=== PATIENT | female | born 1990 | race Caucasian/White ===

== ENCOUNTER 2018-10-03 21:39 | Inpatient (IN) ==
[2018-10-03 21:55] VITALS: BMI 32.7
[2018-10-03 22:12] LABS: AMNISURE ROM TEST THERE IS A RUPTURE (NO RUPTURE)
[2018-10-03 22:53] LABS: BASOPHILS # (AUTO) 0.1 X10^3/uL (0.0-0.1); BASOPHILS % (AUTO) 0.5 % (0.2-1.0); EOSINOPHILS # (AUTO) 0.1 x10^3/uL (0.0-0.2); EOSINOPHILS % (AUTO) 0.5 % (0.9-2.9); HEMOGLOBIN 9.8 g/dL (12.0-16.0); LYMPHOCYTES # (AUTO) 1.9 X10^3/uL (1.3-2.9); LYMPHOCYTES % (AUTO) 17.5 % (21.0-51.0); MEAN CORPUSCULAR HEMOGLOBIN 28.4 pg (27.0-34.0); MEAN CORPUSCULAR HGB CONC 33.9 g/dL (33.0-35.0); MEAN CORPUSCULAR VOLUME 83.8 fL (80.0-100.0); MEAN PLATELET VOLUME 12.9 fL (7.4-11.0); MONOCYTES % (AUTO) 9.3 % (0.0-13.0); NEUTROPHILS # (AUTO) 7.8 x10^3/uL (2.2-4.8); NEUTROPHILS % (AUTO) 72.2 % (42.0-75.0); PLATELET COUNT 152 X10^3/uL (150.0-450.0); RED BLOOD COUNT 3.47 X10^6/uL (3.5-5.4); RED CELL DISTRIBUTION WIDTH 13.9 % (11.6-16.5); WHITE BLOOD COUNT 10.9 X10^3/uL (3.6-10.0)
[2018-10-03] MEDS ORDERED: D5 1/2 NS 1000 ML 1,000 ML IV ONE (22:53)
[2018-10-03 22:58] LABS: BLOOD UREA NITROGEN 11 mg/dL (7-18); CALCIUM 9.4 mg/dL (8.5-10.1); CARBON DIOXIDE 22.8 mmol/L (21-32); CHLORIDE 103 mmol/L (98-107); SODIUM 137 mmol/L (136-145); eGFR NON BLACK RACES > 60 (>60)
[2018-10-03] MEDS ORDERED: REGLAN INJ 10 MG VIAL IVP PRN (23:09)
[2018-10-03] MEDS ORDERED: NUBAIN INJ 200 MG VIAL MULTIDOSE IVP PRN (23:09)
[2018-10-03] MEDS ORDERED: PITOCIN IVP ONE (23:09)
[2018-10-03] MEDS ORDERED: D5LR 1L W PITOCIN 10 UNITS/L 10 UNITS/1,000 ML BAG IV PRN (23:09)
[2018-10-03] MEDS ORDERED: PITOCIN ONE (23:18)
[2018-10-03] MEDS ORDERED: D5 1/2 NS 1L W PITOCIN 20 UNITS/L 20 UNITS/1,000 ML BAG IV ONE (23:18)
[2018-10-03] MEDS ORDERED: D5 1/2 NS 1000 ML 1,000 ML IV SCH (23:45)
[2018-10-04] MEDS ORDERED: NUBAIN INJ 10 ONE ×2 (00:57→02:57)
[2018-10-04] MEDS ORDERED: FENTANYL INJ 100 mcg ONE (04:13)
[2018-10-04] MEDS ORDERED: ADRENALINE CHL INJ ONE (04:13)
[2018-10-04] MEDS ORDERED: NAROPIN EPIDURAL 0.2% + FENTANYL 90MCG 60 ML EPI ONE (04:13)
[2018-10-04] MEDS ORDERED: LR 1000 ML IV 1,000 ML IV ONE ×2 (04:13→06:28)
[2018-10-04] MEDS ORDERED: XYLOCAINE-MPF 1% ONE (04:14)
[2018-10-04] MEDS ORDERED: XYLOCAINE 1 % (PLAIN) ONE (04:14)
[2018-10-04] MEDS ORDERED: ANCEF VIAL 1 GRAM ONE (06:19)
[2018-10-04] MEDS ORDERED: XYLOCAINE 2% and EPINEPHRINE 1:100,000 ONE (06:27)
[2018-10-04] MEDS ORDERED: DILAUDID INJ ONE (06:27)
[2018-10-04] MEDS ORDERED: PHENERGAN INJ 25 MG IVP PRN (07:59)
[2018-10-04] MEDS ORDERED: REGLAN INJ 10 MG VIAL IVP PRN (07:59)
[2018-10-04] MEDS ORDERED: BENADRYL INJ 50 MG VIAL IVP PRN ×2 (07:59→08:21)
[2018-10-04] MEDS ORDERED: ZOFRAN INJ 4 MG VIAL IVP PRN ×2 (07:59→08:21)
[2018-10-04] MEDS ORDERED: PERCOCET TAB 5/325 MG PO PRN (08:21)
[2018-10-04] MEDS ORDERED: PROVENTIL NEB TX 0.083% 2.5MG/ 3ML NEB PRN (08:21)
[2018-10-04] MEDS ORDERED: NARCAN INJ IVP PRN (08:21)
[2018-10-04] MEDS ORDERED: ADACEL or BOOSTRIX TDaP VACCINE IM ONE (08:21)
[2018-10-04] MEDS ORDERED: D5 1/2 NS 1000 ML 1,000 ML with PITOCIN 20 UNITS IV SCH ×2 (08:21)
[2018-10-04] MEDS ORDERED: MYLICON TAB 80 MG CHEW PO PRN (08:21)
[2018-10-04] MEDS ORDERED: FLUVIRIN IM ONE (11:00)
[2018-10-04] MEDS: TORADOL 30 MG VIAL IVP PRN ×2 (11:31→19:59)
[2018-10-04] MEDS: PRENATAL PLUS PO SCH (11:36)
[2018-10-04] MEDS: PROTONIX TAB 40 MG PO SCH (11:37)
[2018-10-04] MEDS ORDERED: NS IRRIGATION 1000 ML ONE (13:46)
[2018-10-05] MEDS: TORADOL 30 MG VIAL IVP PRN (02:00)
[2018-10-05 06:17] LABS: HEMATOCRIT 25.7 % (36.0-47.0); HEMOGLOBIN 8.6 g/dL (12.0-16.0)
[2018-10-05] MEDS: PRENATAL PLUS PO SCH (08:10)
[2018-10-05] MEDS: PROTONIX TAB 40 MG PO SCH (08:10)
[2018-10-05] MEDS: PERCOCET TAB 5/325 MG PO PRN ×3 (08:10→21:10)
[2018-10-05] MEDS: COLACE CAP 100 MG PO SCH ×2 (08:10→21:06)
[2018-10-05] MEDS: BACITRACIN ZINC ONE ×2 (09:10→09:11)
[2018-10-05] MEDS: BACTROBAN CREAM TOP SCH ×2 (13:00→21:29)
[2018-10-05] MEDS: MOTRIN TAB 800 MG PO PRN ×2 (13:00→21:20)
[2018-10-06] MEDS: PERCOCET TAB 5/325 MG PO PRN ×2 (02:10→06:30)
[2018-10-06] MEDS: BACTROBAN CREAM TOP SCH (06:02)
[2018-10-06] MEDS: MOTRIN TAB 800 MG PO PRN (06:30)
[2018-10-06] MEDS: PRENATAL PLUS PO SCH (08:35)
[2018-10-06] MEDS: PROTONIX TAB 40 MG PO SCH (08:35)
[2018-10-06] MEDS: COLACE CAP 100 MG PO SCH (08:35)
[2018-10-06 10:35] VITALS: BP 137/87
== END 2018-10-06 10:50 | disposition home or self-care (01) | DRG 786 ==
LOC: ER 21:40 → LD 22:46 → MED/SURG 10-04 08:32
PROVIDERS: ADMIT Specialist; ATTEND Specialist
DX: O26.893 Other specified pregnancy related conditions, third trimester; O99.613 Diseases of the digestive system complicating pregnancy, third trimester; O77.8 Labor and delivery complicated by other evidence of fetal stress; Z37.0 Single live birth; Z3A.36 36 weeks gestation of pregnancy; O60.14X0 Preterm labor third trimester with preterm delivery third trimester, not applicable or unspecified; O24.410 Gestational diabetes mellitus in pregnancy, diet controlled
CPT/HCPCS: 36415; 59409; 80048; 80307; 84112; 85014; 85018; 85025; 86592; 86850; 86900; 86901; 90686; 94760; 96365; 99283; A4216; A4222; S0197; G0434; J0171; J0690; J1170; J1885; J2001; J2300; J2590; J3010; J3490; J7120; S5010